=== PATIENT | female | born 1980 | race Caucasian/White ===

== ENCOUNTER 2016-11-30 02:15 | Emergency (ER) | payer OTHER ==
[2016-11-30 02:29] VITALS: BP 145/83; PULSE 78; TEMP 98.5; BMI 24.6
--- NOTE | 2016-11-30 03:19 | PDOC ---
History of Present Illness - General Chief Complaint: Ear Problem Stated Complaint: EAR PAIN Time Seen by Provider: 11/30/16 03:05 History Source: Patient, Transport Tech Used Exam Limitations: Language Barrier - History of Present Illness Initial Comments: 11/30/16 03:14 36yo Female patient with no significant past medical history presents to ED c/o Left Ear pain that worsened tonight. Patient states yesterday morning symptoms began with right ear pain that slowly progressed to left ear pain, with sore throat and intermittent cough. Patient denies fever, rash, n/v/d or any other complaints at this time. Timing/Duration: reports: yesterday Severity: reports: severe Episode Description: See HPI Possible Cause: No: no prior episodes, other, allergen exposure, chronic episodes, frequent episodes, illness exposure, irritant gases exposure, occasional episodes, smoke exposure, unknown cause Modifying Factors: worse with: activity, albuterol inhaler, albuterol nebulizer , antibiotics, coughing, lying down, oxygen, rest, other Associated Symptoms: reports: cough, earache, sore throat. denies: denies symptoms, chest pain/soreness, dizziness, facial pain, fever/chills, headache, lightheadedness, muscle aches, nasal congestion, nasal drainage, shortness of breath, sinus infection, wheezing, other Past History - Travel Traveled outside of the country in the last 30 days: No Close contact w/someone who was outside of country & ill: No - Past Medical History Allergies/Adverse Reactions: Allergies Allergy/AdvReac Type Severity Reaction Status Date / Time No Known Allergies Allergy Verified 11/30/16 02:20 Home Medications: Ambulatory Orders Amoxicillin/Potassium Clav [Augmentin 875-125 Tablet] 1 each PO Q12H #20 tablet 11/30/16 Ibuprofen [Motrin -] 600 mg PO Q6H PRN #30 tablet 11/30/16 Oxycodone HCl/Acetaminophen [Endocet 5-325 Tablet] 1 each PO Q8H PRN #9 tablet MDD 3 tab 11/30/16 HTN: Yes - Psycho/Social/Smoking Cessation Hx Suicidal Ideation: No Smoking History: Never smoked Respiratory Specific PMHX - Complaint Specific PMHX Angina: No Bronchitis: No Pneumonia: No Pulmonary Embolus: No TB (Tuberculosis): No Review of Systems - Review of Systems Able to Perform ROS?: Yes Is the patient limited Faroese proficient: No Constitutional: No: Chills, Fever HEENTM: Yes: Ear Pain, Throat Pain. No: Ear Discharge, Mouth Pain, Dental Problems, Difficulty Swallowing Respiratory: Yes: Cough. No: Shortness of Breath, Stridor, Wheezing, Productive cough Cardiac (ROS): No: Chest Pain, Chest Tightness ABD/GI: No: Constipated, Diarrhea, Nausea, Poor Appetite, Poor Fluid Intake, Vomiting Integumentary: No: Rash All Other Systems: Reviewed and Negative *Physical Exam - Vital Signs Last Vital Signs Temp Pulse Resp BP Pulse Ox 98.5 F 78 18 145/83 99 11/30/16 02:11/30/16 02:11/30/16 02:11/30/16 02:11/30/16 02:17 - Physical Exam General Appearance: Yes: Nourished, Appropriately Dressed, Apparent Distress, Moderate Distress. No: Mild Distress, Severe Distress HEENT: positive: EOMI, COLBY, Normal Voice, Symmetrical, Pharyngeal Erythema, TM Bulging, TM Erythema, Other (Left ear drainage (clear).). negative: Normal ENT Inspection, TMs Normal, Pharynx Normal, Tonsillar Exudate, Tonsillar Erythema, Nasal Congestion, Rhinorrhea, Sinus Tenderness, TM Dull, Excessive drooling, Thrush Neck: positive: Trachea midline, Normal Thyroid, Supple, Lymphadenopathy (R), Lymphadenopathy (L). negative: Rigid, Decreased range of motion, Stridor, Tender lateral, Tender midline Respiratory/Chest: positive: Lungs Clear, Normal Breath Sounds. negative: Chest Tender, Respiratory Distress, Accessory Muscle Use, Labored Respiration, Rapid RR, Rhonchi, Stridor, Wheezing Cardiovascular: positive: Regular Rhythm, Regular Rate Gastrointestinal/Abdominal: positive: Normal Bowel Sounds, Soft. negative: Distended, Guarding, Rebound, Tenderness Musculoskeletal: positive: Normal Inspection. negative: CVA Tenderness, Decreased Range of Motion, Vertebral Tenderness Extremity: positive: Normal Capillary Refill, Normal Inspection, Normal Range of Motion. negative: Pedal Edema, Swelling, Calf Tenderness, Erythema, Inflammation Integumentary: positive: Normal Color, Dry, Warm Neurologic: positive: archeologist classical II-XII NML intact, Fully Oriented, Alert, Normal Mood/ Affect, Normal Response, Motor Strength 5/5 *DC/Admit/Observation/Transfer Diagnosis at time of Disposition: Otitis media Qualifiers: Otitis media type: unspecified nonsuppurative Laterality: bilateral Qualified Code(s): H65.93 - Unspecified nonsuppurative otitis media, bilateral Pharyngitis Qualifiers: Pharyngitis/tonsillitis etiology: other specified organisms Qualified Code(s): J02.8 - Acute pharyngitis due to other specified organisms - Discharge Dispostion Disposition: HOME Condition at time of disposition: Stable Admit: No - Prescriptions Prescriptions: Amoxicillin/Potassium Clav [Augmentin 875-125 Tablet] 1 each PO Q12H #20 tablet Oxycodone HCl/Acetaminophen [Endocet 5-325 Tablet] 1 each PO Q8H PRN #9 tablet MDD 3 tab PRN Reason: Severe Pain Ibuprofen [Motrin -] 600 mg PO Q6H PRN #30 tablet PRN Reason: Mild Pain - Patient Instructions Printed Discharge Instructions: DI for Otitis Media (Middle Ear Infection)- Child, DI for Viral Pharyngitis Additional Instructions: Follow up with your primary care provider. Take medications as prescribed. Do not drive, drink alcohol, or operate heavy machinery while taking Endocet. Return if symptoms do not get better within 2 day or get worse over the next 24 hours while taking prescribed medications. Print Language: GEORGIAN
[2016-11-30] MEDS ORDERED: AMOX TR/POT CLAV 875MG/125MG TABLETS (FP) PO ONE (03:27)
[2016-11-30] MEDS ORDERED: DEXAMETHASONE SOD PHOSPHATE 10 MG/1 ML VIAL IM ONE (03:27)
[2016-11-30] MEDS ORDERED: IBUPROFEN 600 MG TABLET (FP) PO ONE ×2 (03:27→03:51)
[2016-11-30] MEDS ORDERED: AMOX TR/POT CLAV 875MG/125MG TABLETS (FP) ONE (03:51)
[2016-11-30] MEDS ORDERED: DEXAMETHASONE SOD PHOSPHATE 10 MG/1 ML VIAL ONE (03:51)
== END 2016-11-30 04:06 | disposition home or self-care (01) ==
LOC: JER 02:15
PROC: 3E0233Z Introduction of Anti-inflammatory into Muscle, Percutaneous Approach (ICD-10-PCS; principal; 2016-11-30)
DX: H65.93 Unspecified nonsuppurative otitis media, bilateral (principal); J02.8 Acute pharyngitis due to other specified organisms; I10 Essential (primary) hypertension
CPT/HCPCS: 96372; 99281-25

== ENCOUNTER 2018-06-05 16:48 | Emergency (ER) | payer OTHER ==
[2018-06-05 16:56] VITALS: BMI 25.8
--- NOTE | 2018-06-05 17:29 | PDOC ---
History of Present Illness - General Chief Complaint: Pain Stated Complaint: PRESURE Time Seen by Provider: 06/05/18 17:24 History Source: Patient - History of Present Illness Timing/Duration: reports: constant Quality: reports: moderate Past History - Past Medical History Allergies/Adverse Reactions: Allergies Allergy/AdvReac Type Severity Reaction Status Date / Time No Known Allergies Allergy Verified 06/05/18 16:53 Home Medications: Ambulatory Orders Losartan Potassium 50 mg PO DAILY 06/05/18 HTN: Yes - Suicide/Smoking/Psychosocial Hx Smoking History: Current some day smoker Number of Cigarettes Smoked Daily: 1 Information on smoking cessation initiated: No Hx Alcohol Use: No Drug/Substance Use Hx: No Review of Systems - Review of Systems Constitutional: No: Chills, Fever ABD/GI: Yes: Abdominal cramping. No: Nausea, Vomiting : No: Burning, Dysuria, Frequency, Flank Pain, Hematuria *Physical Exam - Vital Signs Last Vital Signs Temp Pulse Resp BP Pulse Ox 98.6 F 84 16 141/78 99 06/05/18 16:53 06/05/18 16:53 06/05/18 16:53 06/05/18 16:53 06/05/18 16:53 - Physical Exam General Appearance: Yes: Appropriately Dressed HEENT: positive: Normal Voice Neck: positive: Supple Respiratory/Chest: negative: Respiratory Distress Gastrointestinal/Abdominal: positive: Tender (to mid lower abd, NT over mcburneys), Soft Musculoskeletal: negative: CVA Tenderness Integumentary: positive: Dry, Warm Neurologic: positive: Fully Oriented, Alert, Normal Mood/Affect Moderate Sedation - Procedure Monitoring Vital Signs: Procedure Monitoring Vital Signs Temperature 98.6 F 06/05/18 16:53 Pulse Rate 84 06/05/18 16:53 Respiratory Rate 16 06/05/18 16:53 Blood Pressure 141/78 06/05/18 16:53 O2 Sat by Pulse Oximetry (%) 99 06/05/18 16:53 Medical Decision Making - Medical Decision Making 06/05/18 17:25 38 yo F, h/o HTN, , s/p elective AB @ 2 months gestation on 05/02/18 in [place] with no issues immediately afterwards and now coming in w/ mid suprapubic pain x 3 days, moderate and constant. Also reports "pressure in my vagina and rectum". States she started having vag bleed since in ED. No dysuria , vaginal discharge, n/v/f/c See exam Possible menses, r/o RPOC (though unlikely given onset) -upreg -UA -US *DC/Admit/Observation/Transfer Diagnosis at time of Disposition: Pelvic pain - Discharge Dispostion Disposition: HOME Condition at time of disposition: Stable - Referrals Referrals: Dominga Gordillo MD [Staff Physician] - - Patient Instructions Printed Discharge Instructions: DI for Pelvic Pain Additional Instructions: Por favor, yana un seguimiento con jeong gineclogo dentro de 2 ramirez o el que aparece en jeong anna. Aumente los fluidos. Reposo plvico/no sexo Regrese al ER para sntomas graves/empeoramiento Please follow up with your personal banking advisor within 2 days or the one listed on your discharge. Increase fluids. Pelvic rest/no sex Return to the ER for severe/worsening symptoms Las dimensiones uterinas son 7,2 x 4,1 x 4,9 cm. la marta endometrial es normal en espesor de 0,8 cm. pequeos quistes Naboth que se observan en el may uterino. Las dimensiones OVARIAS son 3,0 x 1,5 x 2,4 cm en el ovario derecho y 2,9 x 0,9 x 1,7 cm en el ovario carol ann. Se fontenot demostrado un flujo sanguneo intacto a los ovarios. Formas de onda espectral arterial y venosa demostradas. No hay evidencia de torsin. Hay quistes de ovario derecho de 1,7 cm. No hay derrame de CUL-de-SAC. No hay fluido aurora. Uterine dimensions are 7.2 x 4.1 x 4.9 cm. Endometrial stripe is normal in thickness measuring 0.8 cm. Tiny nabothian cysts noted in the cervix. Ovary dimensions are 3.0 x 1.5 x 2.4 cm in the right ovary and 2.9 x 0.9 x 1.7 cm in the left ovary. There is intact blood flow demonstrated to the ovaries. Arterial and venous spectral waveforms demonstrated. There is no evidence of torsion. There is a 1.7 cm right ovarian cysts. There is no cul-de-sac effusion. There is no free fluid. Usted se niega a proporcionarnos lorraine muestra de orina para un anlisis porque est aurora de dolor, sean por favor siga con jeong gineclogo. You are refusing to provide us a urine sample for an analysis because you are pain free but please follow up with your personal banking advisor. Print Language: CYPRIOT - Post Discharge Activity
[2018-06-05] MEDS ORDERED: IBUPROFEN 400 MG TABLET (FP) PO ONE ×2 (18:11→20:57)
--- NOTE | 2018-06-05 21:20 | PDOC ---
*Physical Exam - Vital Signs Last Vital Signs Temp Pulse Resp BP Pulse Ox 98.6 F 84 16 141/78 99 06/05/18 16:53 06/05/18 16:53 06/05/18 16:53 06/05/18 16:53 06/05/18 16:53 - Physical Exam Comments: 06/05/18 21:15 GENERAL: Well developed, well nourished. Awake and alert. No acute distress. PULMONARY: No evidence of respiratory distress. Lungs clear to auscultation bilaterally. No wheezing, rales or rhonchi. ABDOMINAL: Soft. Non-tender. Non-distended. No rebound or guarding. No organomegaly. Normoactive bowel sounds. SKIN: Warm and dry. Normal capillary refill. No rashes. No jaundice. ED Treatment Course - RADIOLOGY Radiograph Interpretation: 06/05/18 21:14 Uterine dimensions are 7.2 x 4.1 x 4.9 cm. Endometrial stripe is normal in thickness measuring 0.8 cm. Tiny nabothian cysts noted in the cervix. Ovary dimensions are 3.0 x 1.5 x 2.4 cm in the right ovary and 2.9 x 0.9 x 1.7 cm in the left ovary. There is intact blood flow demonstrated to the ovaries. Arterial and venous spectral waveforms demonstrated. There is no evidence of torsion. There is a 1.7 cm right ovarian cysts. There is no cul-de-sac effusion. There is no free fluid. - Medications Given in the ED: ED Medications Discontinued Medications Generic Name Dose Route Start Last Admin Trade Name Freq PRN Reason Stop Dose Admin Ibuprofen 800 mg 06/05/18 18:11 06/05/18 21:02 Motrin - PO 06/05/18 18:12 800 mg ONCE ONE Administration Progress Note - Progress Note Progress Note: 2016hrs: Patient states she is completely pain-free and feels fine. Patient states if she felt the way she does now prior to coming here, she would've never came to the ER. 2108hrs: Patient insists that she is pain-free. On deep palpation to her abdomen and pelvic area, patient states she is asymptomatic. Patient states she forgot to give a urine specimen and wishes to go home and follow up with her own physician without providing a urine sample to the ER. Patient states she will return if symptoms recur. *DC/Admit/Observation/Transfer Diagnosis at time of Disposition: Pelvic pain - Discharge Dispostion Disposition: HOME Condition at time of disposition: Stable Decision to Admit order: No - Referrals Referrals: Dominga Gordillo MD [Staff Physician] - - Patient Instructions Printed Discharge Instructions: DI for Pelvic Pain Additional Instructions: Por favor, yana un seguimiento con jeong gineclogo dentro de 2 ramirez o el que aparece en jeong anna. Aumente los fluidos. Reposo plvico/no sexo Regrese al ER para sntomas graves/empeoramiento Please follow up with your review manager within 2 days or the one listed on your discharge. Increase fluids. Pelvic rest/no sex Return to the ER for severe/worsening symptoms Las dimensiones uterinas son 7,2 x 4,1 x 4,9 cm. la marta endometrial es normal en espesor de 0,8 cm. pequeos quistes Naboth que se observan en el may uterino. Las dimensiones OVARIAS son 3,0 x 1,5 x 2,4 cm en el ovario derecho y 2,9 x 0,9 x 1,7 cm en el ovario carol ann. Se fontenot demostrado un flujo sanguneo intacto a los ovarios. Formas de onda espectral arterial y venosa demostradas. No hay evidencia de torsin. Hay quistes de ovario derecho de 1,7 cm. No hay derrame de CUL-de-SAC. No hay fluido aurora. Uterine dimensions are 7.2 x 4.1 x 4.9 cm. Endometrial stripe is normal in thickness measuring 0.8 cm. Tiny nabothian cysts noted in the cervix. Ovary dimensions are 3.0 x 1.5 x 2.4 cm in the right ovary and 2.9 x 0.9 x 1.7 cm in the left ovary. There is intact blood flow demonstrated to the ovaries. Arterial and venous spectral waveforms demonstrated. There is no evidence of torsion. There is a 1.7 cm right ovarian cysts. There is no cul-de-sac effusion. There is no free fluid. Usted se niega a proporcionarnos lorraine muestra de orina para un anlisis porque est aurora de dolor, sean por favor siga con jeong gineclogo. You are refusing to provide us a urine sample for an analysis because you are pain free but please follow up with your review manager. Print Language: KAZAKH - Post Discharge Activity
[2018-06-05 22:22] VITALS: BP 110/78; PULSE 89; TEMP 98.5
== END 2018-06-05 22:22 | disposition home or self-care (01) ==
LOC: JER 16:48
DX: R10.2 Pelvic and perineal pain (principal); N83.201 Unspecified ovarian cyst, right side
CPT/HCPCS: 76830-TC; 76856-TC; 99283-25